=== PATIENT | male | born 1945 | race Caucasian/White ===

== ENCOUNTER 2018-06-14 11:21 | Emergency (ER) | payer OTHER, BC ==
[2018-06-14] MEDS ORDERED: PROPARACAINE/FLUORESCEIN SOD 5 ML OPHT.BTL ONE (11:39)
--- NOTE | 2018-06-14 11:56 | EDPHY ---
H & P Stated Complaint: r eye surg tues/ on sat/ and still feeling irritated Time Seen by Provider: 06/14/18 11:34 HPI/ROS: CHIEF COMPLAINT: Right eye irritation following surgery on Saturday HISTORY OF PRESENT ILLNESS: The patient presents to the ED with right eye irritation and discomfort following a ocular surgery on Saturday. The patient had a KDB procedure performed on his right eye at the [facility] for glaucoma. The patient is currently taking prednisolone and Combigan eyedrops in that eye. The patient reportedly stop taking pilocarpine 2 days ago secondary to severe pain. REVIEW OF SYSTEMS: A comprehensive 10 point review of systems is otherwise negative aside from elements mentioned in the history of present illness. Source: Patient Exam Limitations: No limitations - Personal History Current Tetanus Diphtheria and Acellular Pertussis (TDAP): Unsure - Medical/Surgical History Hx Asthma: No Hx Chronic Respiratory Disease: No Hx Diabetes: No Hx Cardiac Disease: No Hx Renal Disease: No Hx Cirrhosis: No Hx Alcoholism: No Hx HIV/AIDS: No Hx Splenectomy or Spleen Trauma: No Other PMH: "bad back" - Social History Smoking Status: Never smoked - Physical Exam Exam: Visual Acuity: R 20/30 L 20/25 OU 20/20 Pupils: Miosis noted in right pupil which is reactive Skin: no proptosis, no periorbital erythema or swelling, no vesicles Conjunctivae: not injected, no discharge Anterior chamber: normal, no hyphema or hypopyon Constitutional: Initial Vital Signs Temperature (C) 36.6 C 06/14/18 11:27 Heart Rate 64 06/14/18 11:27 Respiratory Rate 16 06/14/18 11:27 Blood Pressure 135/92 H 06/14/18 11:27 O2 Sat (%) 96 06/14/18 11:27 O2 Delivery Mode Room Air Allergies/Adverse Reactions: No Known Allergies Allergy (Unverified 06/14/18 11:26) Home Medications: Medication Instructions Recorded Latanoprost/Pf [Latanoprost 0.005% 7.5 ml OP AD #1 btl 06/14/18 Eye Drop] Multiple Eye Drops 06/14/18 traMADol 06/14/18 Medical Decision Making ED Course/Re-evaluation: The patient's intra-ocular pressure is 34 mm in his right eye. Consultation was made with the on-call cutting machine tender at the [facility] at noon. I spoke with Dr. Gonsalo Serrano who recommends the followin. Patient will be seen tomorrow at [facility] for an eye pressure checked. 2. Combigan will be increased to three times daily 3. Pred Forte will be decreased to 1 drop daily 4. Patient will contact Ophthalmology for any complaints of vision loss immediately Departure - Departure Disposition: Home, Routine, Self-Care Clinical Impression: Glaucoma Condition: Good Instructions: Glaucoma (ED) Additional Instructions: 1. You will need a eye pressure checked performed tomorrow at the [facility]. They report that they should contact you today to schedule that. Please contact them if you have not heard from them in 2 hr. 2. A new eye drop Latanaprost has been prescribed. 1 drop to the right eye immediately after you filled the prescription and another drop this evening. After that you will take this drop in the evening only. 3. Only 1 drop of Pred Forte a day. If you have already taken the drop today do not take an additional dose. 4. Increase Combigan to 1 drop 3 times a day. 5. Contact Ophthalmology immediately for any worsening symptoms or vision loss. Referrals: Derik Brown MD [Primary Care Provider] - As per Instructions Prescriptions: Latanoprost/Pf [Latanoprost 0.005% Eye Drop] 7.5 ml OP AD #1 btl
[2018-06-14] MEDS ORDERED: acetaZOLAMIDE 250 MG TAB PO ONE (12:36)
[2018-06-14 13:38] VITALS: BP 155/100
== END 2018-06-14 13:38 | disposition home or self-care (01) ==
DX: H40.9 Unspecified glaucoma (principal); H57.11 Ocular pain, right eye; Z98.890 Other specified postprocedural states

== ENCOUNTER → 2018-08-05 | Outpatient (CLI) | payer OTHER, BC | LOC: FIMAGING 09:30 | PROVIDERS: ATTEND Neurological Surgery | DX: M54.40 Lumbago with sciatica, unspecified side (principal); M43.16 Spondylolisthesis, lumbar region ==

== ENCOUNTER 2018-11-18 07:15 | Inpatient (IN) | payer OTHER, BC ==
[2018-11-18] MEDS ORDERED: morphINE SR 15 MG TAB PO ONE (11:37)
[2018-11-18] MEDS ORDERED: GABAPENTIN 300 MG CAP PO ONE (11:37)
[2018-11-18] MEDS ORDERED: morphINE PF 0.2 MG in SYRINGE INTRATHECAL 1 SYR IT ONE (11:37)
[2018-11-18] MEDS ORDERED: ceFAZolin 2 GM/DEXTROSE 100 ML IV ONE (11:37)
[2018-11-18] MEDS ORDERED: ACETAMINOPHEN 500 MG TAB PO ONE (11:37)
[2018-11-18] MEDS ORDERED: LR 1,000 ML IV ONE (11:39)
[2018-11-18] MEDS ORDERED: BUPIVACAINE 0.25% 30 ML SDV ONE (12:35)
[2018-11-18] MEDS ORDERED: MIDAZOLAM 2 MG/2 ML VIAL IVP ONE (12:35)
[2018-11-18] MEDS ORDERED: CHLORHEXIDINE GLUC HIBICLENS 118 ML BTL TP ONE (12:35)
[2018-11-18] MEDS ORDERED: EPINEPHrine 1 MG/ML INJ ONE (12:35)
--- NOTE | 2018-11-18 12:35 | PDANEPAE ---
ANE History of Present Illness L4-5, L5-S1 TLIF ANE Past Medical History - Cardiovascular History Hx Hypertension: Yes Hx Arrhythmias: No Hx Chest Pain: No Hx Coronary Artery / Peripheral Vascular Disease: No Hx CHF / Valvular Disease: No Hx Palpitations: No - Pulmonary History Hx COPD: No Hx Asthma/Reactive Airway Disease: No Hx Recent Upper Respiratory Infection: Yes Hx Oxygen in Use at Home: No Hx Sleep Apnea: No Sleep Apnea Screening Result - Last Documented: Positive Pulmonary History Comment: RECENT URI - Neurologic History Hx Cerebrovascular Accident: No Hx Seizures: No Hx Dementia: No - Endocrine History Hx Diabetes: No Hypothyroid: No Hyperthyroid: No Obesity: no - Renal History Hx Renal Disorders: No - Liver History Hx Hepatic Disorders: No - Neurological & Psychiatric Hx Hx Neurological and Psychiatric Disorders: No - Cancer History Hx Cancer: No - Congenital Disorder History Hx Congenital Disorders: No - GI History Hx Gastrointestinal Disorders: No - Other Health History Other Health History: DDD. GLAUCOMA - Chronic Pain History Chronic Pain: Yes (LOWER LUMBAR) - Surgical History Prior Surgeries: RT EYE RELEIVE PRESSURE. GASTRIC BYPASS 05/2017. GASTRIC BANDS ANE Review of Systems Review of Systems: - Exercise capacity METS (RN): 4 METS ANE Patient History - Allergies Allergies/Adverse Reactions: No Known Allergies Allergy (Verified 10/28/18 11:23) - Home Medications Home Medications: Brimonidine/Timolol [Combigan (*)] 1 drop EACHEYE BID 10/28/18 [Last Taken 11/18] Calcium Carbonate [Oyster Shell Calcium 500 mg (*)] 1,000 mg PO BID 10/28/18 [ Last Taken 11/18/18] Cyanocobalamin [Vitamin B12 (*)] 1,000 mcg PO DAILY 10/28/18 [Last Taken ] Herbals/Supplements -Info Only 1 ea PO DAILY 10/28/18 [Last Taken 11/18/18] Losartan Potassium 100 mg PO DAILY 10/28/18 [Last Taken 11/18/18] Multivitamins [Multivitamin (*)] 1 each PO DAILY 10/28/18 [Last Taken 11/18/18] Travoprost Z 0.004% [Travatan Z 0.004% (*)] 1 drops EACHEYE HS 10/28/18 [Last Taken 11/18/18] Triamcinolone 0.1% [Triamcinolone 0.1% Cream (*)] 1 khurram TP DAILY PRN 10/28/18 [ Last Taken 11/18/18] metroNIDAZOLE 0.75 % [Metrogel 0.75% Topical Gel (RX)] 1 khurram TP BID 10/28/18 [ Last Taken 11/18/18] traMADol [Ultram 50 mg (*)] 50 mg PO Q6HRS PRN 10/28/18 [Last Taken 11/18/18] Fiber 11/18/18 [Last Taken 11/18/18] - NPO status NPO Status: no food or drink >8 hours NPO Since - Liquids (Date): 11/18/18 NPO Since - Liquids (Time): 10:30 NPO Since - Solids (Date): 11/18/18 NPO Since - Solids (Time): 05:55 - Smoking Hx Smoking Status: Never smoked ANE Labs/Vital Signs - Vital Signs Height: 167.64 cm Weight: 86.183 kg ANE Physical Exam - Airway Neck exam: decreased ROM - Pulmonary Pulmonary: no respiratory distress, no rales or rhonchi - Cardiovascular Cardiovascular: regular rate and rhythym, no murmur, rub, or gallop ANE Anesthesia Plan Anesthesia Plan: general endotracheal anesthesia
[2018-11-18] MEDS ORDERED: BACITRACIN 50,000 UNITS/10 ML SYR IRR ONE (12:36)
[2018-11-18] MEDS ORDERED: fentaNYL 250 MCG/5 ML INJ ONE ×2 (12:58→15:03)
[2018-11-18] MEDS ORDERED: PROPOFOL/EMULSION 500 MG/50 ML BOTTLE IV ONE ×4 (12:58→16:38)
[2018-11-18] MEDS ORDERED: HYDROmorphONE/DILAUDID 2 MG/ML INJ IVP PRN ×2 (13:11→18:50)
[2018-11-18] MEDS ORDERED: fentaNYL 100 MCG/2 ML INJ IVP PRN ×2 (13:11→18:50)
[2018-11-18] MEDS ORDERED: NALOXONE HCL 0.4 MG/ML INJ IVP PRN ×3 (13:11→18:50)
[2018-11-18] MEDS ORDERED: MEPERIDINE 25 MG/0.5 ML AMP IVP PRN (13:11)
[2018-11-18] MEDS ORDERED: ALBUTEROL 3 ML DEYVIAL IH PRN (13:11)
[2018-11-18] MEDS ORDERED: ONDANSETRON 4 MG/2 ML VIAL IVP PRN ×3 (13:11→18:50)
[2018-11-18] MEDS ORDERED: DIAZEPAM 5 MG/ML 1 ML SYR IVP PRN ×2 (13:11→18:50)
--- NOTE | 2018-11-18 14:01 | PDHPUP ---
History & Physical Update H&P update statement: This history and physical update is based on an assessment of the patient which was completed after admission or registration (within 24 hours), but prior to the surgery/procedure. H&P update: H&P reviewed & patient examined, no change in patient's condition since H&P completed (Consents signed and site marked. All questions answered.)
[2018-11-18] MEDS ORDERED: TRIAMCINOLONE 0.1% 15 GM CRTUBE TP PRN (14:03)
[2018-11-18] MEDS ORDERED: diphenhydrAMINE 25 MG CAP PO PRN (14:43)
[2018-11-18] MEDS ORDERED: POLYETHYLENE GLYCOL 3350 17 GM PKT PO PRN (14:43)
[2018-11-18] MEDS ORDERED: BISACODYL 10 MG SUPP PR PRN (14:43)
[2018-11-18] MEDS ORDERED: ONDANSETRON DISINTEGRATING 4 MG TAB PO PRN (14:43)
[2018-11-18] MEDS ORDERED: MAGNESIUM HYDROXIDE 30 ML UDCUP PO PRN (14:43)
[2018-11-18] MEDS ORDERED: LACTULOSE 20 GM/30 ML UDCUP PO PRN (14:43)
[2018-11-18] MEDS ORDERED: NS 1,000 ML IV SCH (14:45)
[2018-11-18] MEDS ORDERED: THROMBIN (BOVINE) 20,000 UNIT VIAL TP ONE (14:47)
--- NOTE | 2018-11-18 14:54 | POSTOPPROG ---
Post Op Note Date of Operation: 11/18/18 Surgeon: Yoan Leong Quality Assurance Clerk: Sabrina Galvin PSS DELIVERY PROFESSIONAL Anesthesiologist: Dr Roman Anesthesia: GET(General Endotracheal) Pre-op Diagnosis: Low back pain Procedure: L4-5, L5-S1 TLIF Inf/Abcess present in the surg proc area at time of surgery?: No Depth: Deep Incisional (Fascial) EBL: 100-500 Total fluids administered: see anesthesia Complications: none Drains: Rickie Ortega Date of Surgery: 11/18/18 Post Op Day: 0 Assessment/Plan: Assessment: 73 yr old M s/p L4-5, L5-S1 TLIF for lower back pain Plan: -Admit med surg -PT/OT -Pain management, patient received IT Duramorph at 1745 11/18/18 -KAROL to bulb suction -Patient has brace, wear when out of bed -Please call neuosurgery with questions/concerns Subjective: waking up in pacu Objective: waking up in pacu AVINA x4 5/5 BLE Dressing/incision CDI KAROL patent Appropriate Neuro Check Frequency Ordered: Yes
[2018-11-18] MEDS ORDERED: ROCURONIUM 50 MG/5 ML VIAL ONE ×2 (15:07→17:56)
[2018-11-18] MEDS ORDERED: DEXAMETHASONE 4 MG/ML VIAL ONE (15:47)
[2018-11-18] MEDS ORDERED: GLYCOPYRROLATE 0.2 MG/1 ML VIAL ONE (15:47)
[2018-11-18] MEDS ORDERED: ONDANSETRON 4 MG/2 ML VIAL ONE (15:47)
--- NOTE | 2018-11-18 15:54 | PDMN ---
Medical Necessity Medical necessity: [facility] [place] S820 Lumbar Fusion, 3 days: 73 y/o s/p L4/5, L5/S1 TLIF, L4/Si Lum Lange, L4/S1 posterior fusion w/ steestevan, NAIMA IP Only
[2018-11-18] MEDS ORDERED: PHENYLEPHRINE HCL 100 MCG/ML SYR ONE (16:02)
[2018-11-18] MEDS ORDERED: fentaNYL 100 MCG/2 ML INJ ONE (16:38)
[2018-11-18] MEDS ORDERED: HYDROCODONE/APAP 5/325 TAB PO PRN (18:50)
[2018-11-18] MEDS ORDERED: LABETALOL HCL 5 MG/ML 20 ML MDV IVP PRN (18:50)
[2018-11-18] MEDS: FAMOTIDINE 20 MG TAB PO SCH (20:07)
[2018-11-18] MEDS: SENNOSIDES/DOCUSATE SODIUM TAB PO SCH (20:08)
[2018-11-18] MEDS: METHOCARBAMOL 750 MG TAB PO PRN (20:08)
[2018-11-18] MEDS: oxyCODONE IR 5 MG TAB PO PRN (20:08)
[2018-11-18] MEDS: TRAVOPROST Z 0.004% 2.5 ML OPHT.BTL EACHEYE SCH (20:10)
[2018-11-18] MEDS: METRONIDAZOLE 0.75% TP SCH (20:11)
[2018-11-18] MEDS: ACETAMINOPHEN 500 MG TAB PO SCH (21:41)
[2018-11-18] MEDS: BRIMONIDINE/TIMOLOL 5 ML OPHT.BTL EACHEYE SCH (21:42)
--- NOTE | 2018-11-18 22:17 | GOP ---
[f rep st] OPERATIVE REPORT DATE OF OPERATION: 11/18/2018 SURGEON: Yoan Leong MD CLIENT CARE SPECIALIST: Sabrina Galvin NP. ANESTHESIA: General. PREOPERATIVE DIAGNOSIS: 1. L4 through S1 lumbar spondylosis with low back pain. 2. Treatment refractory to nonoperative intervention. POSTOPERATIVE DIAGNOSIS: 1. L4 through S1 lumbar spondylosis with low back pain. 2. Treatment refractory to nonoperative intervention. PROCEDURE PERFORMED: 1. Posterior arthrodesis with approach to L4, L5, and S1. 2. Posterolateral fusion with bilateral pedicle screw placement into L4, L5, and S1 from the [employer]era 4.75 system. 3. Left-sided L4-L5 hemilaminotomy with facetectomy, foraminotomy, and transforaminal lumbar interbody fusion with a 7 x 28 mm titanium PEEK elevate cage filled with morselized autograft and allograft. 4. Left-sided L5-S1 hemilaminotomy with facetectomy, foraminotomy, and transforaminal lumbar interbody fusion with a 7 x 28 mm titanium PEEK elevate cage filled with morselized autograft and allograft. 5. Posterolateral fusion on the right between L4 and S1 with morselized autograft and allograft. 6. Use of intraoperative 3D Stealth navigation. 7. Use of intraoperative fluoroscopy, less than 1 hour physician time. 8. Use of neuromonitoring. 9. Use of the operative microscope. FINDINGS: per imaging SPECIMENS: None. ESTIMATED BLOOD LOSS: 200 mL. INDICATIONS: The patient is a very pleasant gentleman who presented to my office with ongoing low back pain. He has undergone facet injections with ablation with excellent relief although nothing was lasting. He had no lower extremity radiculopathy symptoms. After discussion of the risks, benefits, and treatment alternatives, we decided to proceed forth with surgery as described above. The original surgical procedure was to include an L4-L5 decompression, however, given his ongoing complaints of back pain and his moderate stenosis at this level, I opted to continue with a hemilaminotomy to leave his spinous process intact for his posterior musculature. DESCRIPTION OF PROCEDURE: The patient was brought to the operating theater and underwent endotracheal anesthesia without complication. He had Venodynes, LISA hose, and the appropriate lines placed by Anesthesia. He was flipped prone onto a Rickie table. All bony processes were inspected and padded. The lower lumbar region was prepped and draped in the usual sterile surgical fashion. A time-out was completed per protocol. The patient received antibiotics within 1 hour of incision. Using lateral fluoroscopy and a spinal needle, we picked our entry point to the L4 through S1 levels. This was marked in the midline. The incision was infiltrated with Marcaine with epinephrine. The incision was taken down with the scalpel blade and using monopolar, taken down midline through the lumbodorsal fascia. A subperiosteal dissection was carried out to the transverse process of L4, L5, and S1. Deep retractors were placed to maintain our exposure. We confirmed our level using lateral fluoroscopy. We attached the 3D Stealth navigation clamp to the spinous process of L5 and completed a 3D navigation spin. Using 3D navigation, we placed the pilot supervisor holes for the bilateral pedicle screws at L4, L5, and S1. All holes were manually palpated with no evidence of cortical breaches. We then tapped and placed 6.5 x 55 mm screws bilaterally in L4, 6.5 x 45 mm screws bilaterally in L5, and 6.5 x 50 mm screws bilaterally in S1 from [employer] 4.75 system. Another 3D Stealth navigation spin demonstrated good placement of the hardware. At this point, the microscope was brought into the field to assist with microscopic dissection and to maintain illumination and magnification. On the left side at L4-L5 and L5-S1, we completed a hemilaminotomy with aggressive facetectomies and nerve root decompressions. We then moved up to the L4-5 level where we distracted the disc interspace and complete left-sided L4-5 diskectomy. We prepared the cartilaginous endplates and measured interbody space. We placed a 7 x 28 mm titanium PEEK elevate cage filled with morselized autograft and allograft anteriorly and towards the midline. We packed additional morcellized autograft in the disk space for interbody fusion. We let down the distraction and moved down to the L5-S1 level where we distracted the interspace and completed a left-sided L5-S1 diskectomy. We prepared the cartilaginous endplates and measured the interbody space. We placed a 7 x 28 mm titanium PEEK elevate cage filled with morselized autograft and allograft anteriorly and toward the midline. We packed additional morcellized autograft in the disk space for the interbody fusion. We let down the distraction and decorticated bone on the right side between L4 and S1. The wound was irrigated copiously with bacitracin irrigation. We injected preservative-free intrathecal narcotics. After decorticating the bone on the right side between L4 and S1, we placed morselized autograft and allograft on the right side between L4 and S1 for the posterolateral fusion. We placed 2 lordotic rods in the heads of the screws between L4 and S1 and secured them down with cap screws , which were then tightened to the information systems architect's setting. A drain was left in the subfascial space and wound then closed in multiple layers including Vicryl sutures in the deep layers and Dermabond for the skin. The patient's wounds were dressed sterilely. He was then flipped supine onto the transfer cart, where he was awakened, extubated, and taken to the recovery room in stable condition. There were no complications and no noted changes on neuromonitoring throughout the procedure. COMPLICATIONS: None. /[id number]/MODL MTDD
[2018-11-18] MEDS: ceFAZolin 2 GM/DEXTROSE 100 ML IV SCH (23:08)
[2018-11-19] MEDS: METHOCARBAMOL 750 MG TAB PO PRN (01:50)
[2018-11-19] MEDS: oxyCODONE IR 5 MG TAB PO PRN ×6 (01:51→20:06)
[2018-11-19 05:43] LABS: PLATELET COUNT 149 10^3/uL (150-400)
[2018-11-19] MEDS: ACETAMINOPHEN 500 MG TAB PO SCH ×3 (06:09→22:04)
[2018-11-19] MEDS: ceFAZolin 2 GM/DEXTROSE 100 ML IV SCH (06:09)
--- NOTE | 2018-11-19 07:16 | NEUSURGPN ---
Date of Surgery: 11/18/18 Post Op Day: 1 Assessment/Plan: Assessment: 73 yr old male that is s/p L4-5, L5-S1 TLIF for lower back pain POD #1 Plan: -s/p L4-S1 TLIF: pt with expected lower back pain -continue with med/surg -PT/OT pending this am -post op xrays pending -KAROL in place -Pain management, patient received IT Duramorph at 1745 11/18/18 -CDI -Patient has brace, wear when out of bed -Please call neuosurgery with questions/concerns -d/w Dr Leong Subjective: Awake and alert. NAD. Pt with expected lower back pain. No mendez/neckchest/abd or gu complaints Objective: AAO x 3, PERRLA/EOMI no droop CN 2-12 grossly intact AVINA x 4 5/5 BLE Dressing/incision CDI KAROL patent/working well Neuro Check Frequency: per routine Urinary Catheter in Place: No Catheter Insertion Date: 11/18/18 - Physician Discussed Patient with : Dang Neurosurgery Physical Exam - Vitals, I&O, Labs I and O 11/18/18 11/19/18 11/20/18 05:59 05:59 05:59 Intake Total 1422 Output Total 1280 Balance 142 Weight 86.183 kg Intake: Oral (ml) 500 IV Infused (ml) 922 Ns 1,000 ml @ 75 mls/hr 702 IV CONT HEAVENLY Rx#: [id number] ceFAZolin 2 GM/DEXTROSE 220 100 ml @ 200 mls/hr IV Q8H HEAVENLY Rx#:[id number] Output: Urine (ml) 1000 Catheter 1000 KAROL Drain Output (ml) 280 Back Rickie Ortega 280 Other: Intake Quantity Yes Sufficient Vital Signs Temp Pulse Resp BP Pulse Ox 36.5 C 56 L 16 92/57 L 99 11/19/18 04:00 11/19/18 04:00 11/19/18 04:00 11/19/18 04:00 11/19/18 04:00 Laboratory Results 11/19/18 04:23 11/19/18 04:23 ICD10 Worksheet Patient Problems: Problems Problem Status Onset Arthrodesis status Acute Lumbar radicular pain Acute Lumbar stenosis Acute - ICD10 Problem Qualifiers (1) Lumbar stenosis (2) Lumbar radicular pain (3) Arthrodesis status
[2018-11-19] MEDS: LOSARTAN POTASSIUM 50 MG TAB PO SCH (09:38)
[2018-11-19] MEDS: SENNOSIDES/DOCUSATE SODIUM TAB PO SCH ×2 (09:39→20:05)
[2018-11-19] MEDS: FAMOTIDINE 20 MG TAB PO SCH ×2 (09:39→20:05)
[2018-11-19] MEDS: BRIMONIDINE/TIMOLOL 5 ML OPHT.BTL EACHEYE SCH ×2 (12:10→20:10)
[2018-11-19] MEDS: METRONIDAZOLE 0.75% TP SCH ×2 (12:12→22:14)
[2018-11-19] MEDS: CALCIUM CARBONATE 500 MG TAB PO SCH ×2 (13:33→20:05)
[2018-11-19] MEDS: CYANOCOBALAMIN SL SCH (13:34)
[2018-11-19] MEDS: FOLIC ACID SL SCH (13:34)
[2018-11-19] MEDS: MULTIVITAMINS 1 EACH TAB PO SCH (13:34)
[2018-11-19] MEDS: METHOCARBAMOL 500 MG TAB PO PRN (14:10)
--- NOTE | 2018-11-19 14:46 | ASMTCMCOM ---
CM Note CM Note Notes: Pt had planned back surgery. PT/OT rec home. Pt was pre-arranged with [facility] who have protocol with MD. Pt spends time between [place] and [place]. Pt will d/c to a local [place] address, Haylie with [facility] has verified they can service the address (ANTONIO to get the address from Haylie). Pt reports he is interested in HHC with [facility]. D/c plan of care: Home with [facility]. Date Signed: 11/19/2018 02:46 PM Electronically Signed By:RADHA Huffman
[2018-11-19] MEDS ORDERED: NS 1,000 ML IV ONE (17:00)
[2018-11-19] MEDS ORDERED: DIAZEPAM 5 MG TAB PO PRN (19:43)
[2018-11-19] MEDS: TRAVOPROST Z 0.004% 2.5 ML OPHT.BTL EACHEYE SCH (20:11)
[2018-11-20] MEDS: oxyCODONE IR 5 MG TAB PO PRN ×7 (01:01→19:43)
[2018-11-20] MEDS: ACETAMINOPHEN 500 MG TAB PO SCH ×3 (05:28→21:02)
[2018-11-20] MEDS: METHOCARBAMOL 500 MG TAB PO PRN (05:28)
[2018-11-20] MEDS: FAMOTIDINE 20 MG TAB PO SCH ×2 (07:20→21:02)
--- NOTE | 2018-11-20 07:26 | NEUSURGPN ---
Assessment/Plan: Assessment: 73 yr old male that is s/p L4-5, L5-S1 TLIF for lower back pain POD #2 Plan: -s/p L4-S1 TLIF: pt with expected lower back pain -PT/OT with intact hardware -post op xrays wiht intact hardware -KAROL removed -Pain management, Oxycodone increased last night, will increased further today if needed. Discussed with nurse -Patient has brace, wear when out of bed (okay to remove when sitting in chair) -Please call neurosurgery with questions/concerns -Seen by Dr Leong and myself Subjective: low back pain, increased since yesterday. Denies any new leg pain, weakness, numbness or tingling Objective: AAO x 3, AVINA x 4 5/5 BLE incision CDI KAROL removed Catheter Insertion Date: 11/18/18 - Physician Patient Seen by : Dang Neurosurgery Physical Exam - Vitals, I&O, Labs I and O 11/19/18 11/20/18 11/21/18 05:59 05:59 05:59 Intake Total 1422 800 300 Output Total 1280 2120 Balance 142 -1320 300 Weight 86.183 kg Intake: Oral (ml) 500 800 300 IV Infused (ml) 922 Ns 1,000 ml @ 75 mls/hr 702 IV CONT HEAVENLY Rx#: [id number] ceFAZolin 2 GM/DEXTROSE 220 100 ml @ 200 mls/hr IV Q8H HEAVENLY Rx#:[id number] Output: Urine (ml) 1000 2050 Catheter 1000 Toilet 2050 KAROL Drain Output (ml) 280 70 Back Rickie Ortega 280 70 Other: Intake Quantity Yes Yes Sufficient Number of Voids Toilet 1 1 Bladder Scan Volume (ml) Toilet 381 Post Void Residual Scan Volume (ml) Catheter 263 Vital Signs Temp Pulse Resp BP Pulse Ox 36.7 C 88 16 109/78 93 11/20/18 07:13 11/20/18 07:13 11/20/18 07:13 11/20/18 07:13 11/20/18 07:13 Laboratory Results 11/19/18 04:23 11/19/18 04:23 ICD10 Worksheet Patient Problems: Problems Problem Status Onset Arthrodesis status Acute Lumbar radicular pain Acute Lumbar stenosis Acute
[2018-11-20] MEDS: MULTIVITAMINS 1 EACH TAB PO SCH (09:22)
[2018-11-20] MEDS: ENOXAPARIN 40 MG/0.4 ML SYR SC SCH (09:23)
[2018-11-20] MEDS: CALCIUM CARBONATE 500 MG TAB PO SCH ×2 (09:23→21:01)
[2018-11-20] MEDS: SENNOSIDES/DOCUSATE SODIUM TAB PO SCH ×3 (09:23→21:51)
[2018-11-20] MEDS: LOSARTAN POTASSIUM 50 MG TAB PO SCH (09:23)
[2018-11-20] MEDS: CYANOCOBALAMIN SL SCH (09:24)
[2018-11-20] MEDS: FOLIC ACID SL SCH (09:24)
[2018-11-20] MEDS: BRIMONIDINE/TIMOLOL 5 ML OPHT.BTL EACHEYE SCH ×2 (09:25→21:05)
[2018-11-20] MEDS: METRONIDAZOLE 0.75% TP SCH ×2 (09:26→21:50)
[2018-11-20] MEDS ORDERED: METHOCARBAMOL 500 MG TAB PO SCH (10:14)
[2018-11-20] MEDS: METHOCARBAMOL 750 MG TAB PO SCH ×3 (10:18→21:02)
--- NOTE | 2018-11-20 12:34 | ASMTCMCOM ---
CM Note CM Note Notes: Pt has been challenged by pain, today PT rec SNF. This CM provided pt the [facility] SNF list, he will discuss SNF with friends/family and wants to see what MD thinks. Haylie with [facility] visited with pt today and if pt progresses and wants to go home [facility] can do home care. CM to follow pt progress. Date Signed: 11/20/2018 12:34 PM Electronically Signed By:RADHA Huffman
--- NOTE | 2018-11-20 14:55 | ASMTCMCOM ---
CM Note CM Note Notes: Pt requests referral to [facility], referral sent in [employer] and Maite reports they can accept pt. Date Signed: 11/20/2018 02:54 PM Electronically Signed By:RADHA Huffman
--- NOTE | 2018-11-20 18:39 | POSTANESTH ---
Post Anesthetic Evaluation Cardiovascular Status: Normal, Stable Respiratory Status: Normal, Stable Level of Consciousness/Mental Status: Can Participate in Eval Pain Control: Adequate, Prn Tx Ordered Nausea/Vomiting Control: Adequate, Prn Tx Ordered Complications Possibly Related to Anesthesia: None Noted
[2018-11-20] MEDS: TRAVOPROST Z 0.004% 2.5 ML OPHT.BTL EACHEYE SCH (21:05)
[2018-11-21] MEDS: METHOCARBAMOL 750 MG TAB PO SCH ×2 (05:05→12:46)
[2018-11-21] MEDS: ACETAMINOPHEN 500 MG TAB PO SCH ×2 (05:05→14:11)
[2018-11-21] MEDS: oxyCODONE IR 5 MG TAB PO PRN ×3 (06:14→12:48)
[2018-11-21] MEDS: FAMOTIDINE 20 MG TAB PO SCH (08:25)
[2018-11-21] MEDS: MULTIVITAMINS 1 EACH TAB PO SCH (08:25)
[2018-11-21] MEDS: CALCIUM CARBONATE 500 MG TAB PO SCH (08:26)
[2018-11-21] MEDS: BRIMONIDINE/TIMOLOL 5 ML OPHT.BTL EACHEYE SCH (08:27)
[2018-11-21] MEDS: CYANOCOBALAMIN SL SCH (08:28)
[2018-11-21] MEDS: FOLIC ACID SL SCH (08:28)
[2018-11-21] MEDS: ENOXAPARIN 40 MG/0.4 ML SYR SC SCH (08:30)
[2018-11-21] MEDS: LOSARTAN POTASSIUM 50 MG TAB PO SCH (08:30)
[2018-11-21 08:32] VITALS: BP 115/80
[2018-11-21] MEDS: SENNOSIDES/DOCUSATE SODIUM TAB PO SCH (08:38)
--- NOTE | 2018-11-21 08:53 | NEUSURGPN ---
Assessment/Plan: Assessment: 73 yr old male that is s/p L4-5, L5-S1 TLIF for lower back pain POD #3 Plan: -s/p L4-S1 TLIF: pt with expected lower back pain -PT/OT -post op xrays wiht intact hardware -Pain management, improved. -Patient has brace, wear when out of bed (okay to remove when sitting in chair) -Please call neurosurgery with questions/concerns -Discussed with Dr. Leong -Dispo planning likely to SNF today Subjective: Back pain more tolerable with medications. Findings that his chair in room is uncomfortable with the back brace. Objective: AAO x 3, AVINA x 4 5/5 BLE and equal incision CDI Sensation intact Catheter Insertion Date: 11/18/18 - Physician Discussed Patient with Dr.: Leong Neurosurgery Physical Exam - Vitals, I&O, Labs I and O 11/20/18 11/21/18 11/22/18 05:59 05:59 05:59 Intake Total 800 1100 Output Total 2120 Balance -1320 1100 Intake: Oral (ml) 800 1100 Output: Urine (ml) 2050 Toilet 2050 KAROL Drain Output (ml) 70 Back Rickie Ortega 70 Other: Intake Quantity Yes Sufficient Number of Voids Toilet 1 4 Bladder Scan Volume (ml) Toilet 381 Post Void Residual Scan Volume (ml) Catheter 263 Vital Signs Temp Pulse Resp BP Pulse Ox 36.9 C 86 16 115/80 96 11/21/18 08:00 11/21/18 08:00 11/21/18 08:00 11/21/18 08:00 11/21/18 08:00 Laboratory Results 11/19/18 04:23 11/19/18 04:23 ICD10 Worksheet Patient Problems: Problems Problem Status Onset Arthrodesis status Acute Lumbar radicular pain Acute Lumbar stenosis Acute
--- NOTE | 2018-11-21 08:55 | PDIAF ---
- Diagnosis Code Status: Full Code - Medication Management Discharge Medications: electronically signed and located in the Home Medication List. - Orders Services needed: Registered Nurse, Physical Therapy, Occupational Therapy Diet Recommendation: no restrictions on diet - Follow Up Care Current Providers and Referrals: Derik Brown MD [Primary Care Provider] -
[2018-11-21] MEDS: METRONIDAZOLE 0.75% TP SCH (11:29)
--- NOTE | 2018-11-21 12:12 | ASMTLACE ---
LACE Length of stay for Answers: 4-6 days current admission Acuity / Level of Answers: Yes Care: Did the patient have an inpatient admission? Comorbidities - select Answers: Opioid dependence all that apply / Chronic pain Other Notes: HTN # of Emergency department Answers: 1-2 visits in the last 6 months Score: 13 Date Signed: 11/21/2018 12:11 PM Electronically Signed By:RADHA Huffman
--- NOTE | 2018-11-21 12:13 | ASMTCMCOM ---
CM Note CM Note Notes: Pt medically stable for d/c to [facility] SNF, orders sent in [employer]scripts. Maite with [facility] scheduled wc transport for 1430. KATIE Souza to call report. Date Signed: 11/21/2018 12:12 PM Electronically Signed By:RADHA Huffman
--- NOTE | 2018-11-21 15:02 | ASDISCHSUM ---
Discharge Information Plan Status:SNF Medically Cleared to Leave: Discharge Date:11/21/2018 02:54 PM CM D/C Disposition: ADT D/C Disposition:Alf Facility Projected Discharge Date:11/22/2018 11:00 AM Transportation at D/C: Discharge Delay Reason: Follow-Up Date:11/22/2018 11:00 AM Discharge Slot: Final Diagnosis: Placement Information Referral Type:*Long Term/SNF Referral ID:[id number] Provider Name:[facility] Address 1:[address] Address 2: City:[place] Selection Factors: State:[place] Patient Contact Information Contact Name:ROMAN Relationship:Sister Address: Work Phone: City: [facility] Phone: [facility] Code: Email: Financial Information Financial Class:Medicare Primary Plan Desc:MEDICARE INPATIENT Primary Plan Number:[id number] Secondary Plan Desc: OUT OF STATE [facility] Secondary Plan Number:[id number] Assessment Information LACE LACE Length of stay for Answers: 4-6 days current admission Acuity / Level of Answers: Yes Care: Did the patient have an inpatient admission? Comorbidities - select Answers: Opioid dependence all that apply / Chronic pain Other Notes: HTN # of Emergency department Answers: 1-2 visits in the last 6 months Score: 13 Date Signed: 11/21/2018 12:11 PM Electronically Signed By:RADHA Huffman [facility] Progress Note CM Andrea CM Note Notes: Pt had planned back surgery. PT/OT rec home. Pt was pre-arranged with [facility] who have protocol with MD. Pt spends time between [place] and [place]. Pt will d/c to a local [place] address, Haylie with [facility] has verified they can service the address (CM to get the address from Haylie). Pt reports he is interested in [facility] with [facility]. D/c plan of care: Home with [facility]. Date Signed: 11/19/2018 02:46 PM Electronically Signed By:RADHA Huffman [facility] CM Progress Note CM Note CM Note Notes: Pt has been challenged by pain, today PT rec SNF. This CM provided pt the [facility] SNF list, he will discuss SNF with friends/family and wants to see what MD thinks. Haylie with [facility] visited with pt today and if pt progresses and wants to go home [facility] can do home care. CM to follow pt progress. Date Signed: 11/20/2018 12:34 PM Electronically Signed By:RADHA Huffman [facility] CM Progress Note CM Note CM Note Notes: Pt requests referral to [facility], referral sent in [employer] and [facility] reports they can accept pt. Date Signed: 11/20/2018 02:54 PM Electronically Signed By:RADHA Huffman [facility] CM Progress Note CM Note CM Note Notes: Pt medically stable for d/c to [facility], orders sent in [employer]. Ma[facility] with [facility] scheduled wc transport for 1430. KATIE Souza to call report. Date Signed: 11/21/2018 12:12 PM Electronically Signed By:RADHA Huffman Intervention Information Intervention Type:*IM-Signed Date of Service:11/21/2018 10:32 AM Patient Type:Inpatient Staff Member:Jackie Hope Hours: Discipline: Severity: Comment:
== END 2018-11-21 14:54 | DRG 455 ==
LOC: F1N 11:03 → F3N 14:18
PROVIDERS: ADMIT Neurological Surgery; ATTEND Neurological Surgery
DX: M43.16 Spondylolisthesis, lumbar region (principal); M48.062 Spinal stenosis, lumbar region with neurogenic claudication; I10 Essential (primary) hypertension; H40.9 Unspecified glaucoma; Z98.84 Bariatric surgery status
CPT/HCPCS: 97116-GP; 97161-GP; 97165-GO; 97535-GO; C1713; C1762; J0171; J0690; J1100; J1650; J2250; J2270; J2274; J2370; J2405; J2704; J3010

== ENCOUNTER → 2019-01-07 | Outpatient (CLI) | payer OTHER, BC | LOC: FIMAGING 08:06 | PROVIDERS: ATTEND Neurological Surgery | DX: Z09 Encounter for follow-up examination after completed treatment for conditions other than malignant neoplasm (principal); Z98.1 Arthrodesis status; M51.34 Other intervertebral disc degeneration, thoracic region; M51.36 Other intervertebral disc degeneration, lumbar region; M48.062 Spinal stenosis, lumbar region with neurogenic claudication ==